=== PATIENT | female | born 1985 | race African-American/Black ===

== ENCOUNTER 2019-03-10 18:58 | Emergency (ER) | payer OTHER, SELFPAY ==
[2019-03-10 19:18] VITALS: BP 142/90; PULSE 76; RESP 18; TEMP 37.3; O2SAT 100
[2019-03-10 19:42] LABS: Add Manual Diff / Slide Review NO; Basophils Absolute Auto 100 /uL (0-100); Eosinophils Absolute Auto 600 /uL (0-450); Eosinophils Percent Auto 7.4 % (2-4); Hematocrit 35.7 % (36-46); Hemoglobin 11.9 g/dL (12.0-16.0); Lymphocytes Absolute Auto 1900 /uL (1100-4500); Lymphocytes Percent Auto 22.6 % (25-40); Mean Corpuscular HGB Conc 33.4 % (30-36); Mean Corpuscular Hemoglobin 29.9 PG (26-34); Mean Corpuscular Volume 89.7 fL (80-100); Monocytes Absolute Auto 600 /uL (0-900); Monocytes Percent Auto 6.8 % (3-14); Neutrophils Absolute Auto 5300 /uL (1500-7000); Neutrophils Percent Auto 62.2 % (50-75); Platelet Count 249 X10^3/uL (150-400); Red Blood Cell Count 3.99 X10^6/uL (4.0-5.2); Red Cell Distribution Width 14.9 % (11.6-14.8); White Blood Cell Count 8.6 X10^3/uL (4.5-11.0)
[2019-03-10 19:46] LABS: Prothrombin Time 11.7 SECONDS (10.1-12.7)
[2019-03-10 19:49] LABS: PTT Partial Thromboplastin Tim 31 SECONDS (26.4-36.2)
[2019-03-10 19:51] LABS: Alanine Aminotransferase 8 IU/L (9-52); Albumin 4.3 g/dL (3.5-5.0); Albumin Globulin Ratio 1.3 (1.0-2.8); Alkaline Phosphatase 54 U/L (38-126); Aspartate Aminotransferase 20 IU/L (14-36); BUN Creatinine Ratio 13.8 (6-22); Bilirubin Total 0.5 mg/dL (0.2-1.3); Blood Urea Nitrogen 11 mg/dL (7-17); Calcium 9.6 mg/dL (8.4-10.2); Carbon Dioxide 28 mmol/L (22-32); Chloride 103 mmol/L (98-107); Estimated Glomerular Filt Rate > 60.0 mL/min (>60); Globulin 3.2 g/dL (1.7-4.1); Glucose 100 mg/dL (70-100); HEMOLYSIS < 15 (0-50); Lipase 39 U/L (23-300); Potassium 4.1 mmol/L (3.4-5.1); Sodium 137 mmol/L (137-145); Total Protein 7.5 g/dL (6.3-8.2)
--- NOTE | 2019-03-10 20:12 | ED.ABDPAIN ---
HPI - Abdominal Pain General Chief Complaint: Abdominal Pain Stated Complaint: right side abdominal pain since yesterday Time Seen by Provider: 03/10/19 20:10 Source: patient Mode of arrival: Ambulatory Limitations: no limitations History of Present Illness HPI narrative: Patient is a 33-year-old female who presents with lower abdominal pain ongoing for the last 2 days. She says it hurts both left and right area it sometimes is radiating up her abdomen as well. No nausea or vomiting. She has been taking Tylenol without any relief. She does have a history of ovarian cyst, she had 1 laparoscopically removed. She has been taking Tylenol without any relief. No fevers. No painful or frequent urination. MD complaint: abdominal pain Onset (ago): day(s) (2) Pain Consistency: constant Severity: moderate Quality: cramping Radiation: suprapubic Migration to: no migration Relieving factors: nothing Exacerbating factors: nothing Related Data Allergies Allergy/AdvReac Type Severity Reaction Status Date / Time No Known Drug Allergies Allergy Verified 03/10/19 19:18 Review of Systems Review of Systems Narrative: GENERAL: Denies chills, fatigue, malaise, fever, sweats, travel HEENT: Denies sinus pain, ear pain, sore throat, difficulty swallowing, neck pain RESPIRATORY: Denies dyspnea, cough, wheezing, hemoptysis, sputum. CARDIOVASCULAR: Denies chest pain, palpitations, orthopnea, edema GASTROINTESTINAL: See HPI : Denies dysuria, frequency, incontinence, hematuria, urinary retention, flank pain. MUSCULOSKELETAL: Denies weakness, joint pain, or bony pain SKIN: No rash, no erythema, no pruritus NEUROLOGIC: Denies weakness, dizziness, headache, numbness, change in speech, confusion PSYCHIATRIC: No concerning psychosocial issues. 12 point review of systems is negative except for those stated above and HPI Patient History Social History Smoking Status: Never smoker alcohol intake frequency: a few times a month Substance Use Type: does not use Exam Initial Vital Signs Initial Vital Signs: Vital Signs Temperature 99.1 F 03/10/19 19:18 Pulse Rate 76 03/10/19 19:18 Respiratory Rate 18 03/10/19 19:18 Blood Pressure 142/90 H 03/10/19 19:18 Pulse Oximetry 100 03/10/19 19:18 GENERAL: Well-appearing, well-nourished and in no acute distress. HEENT: Head atraumatic,EOMI, pupils reactive, face symmetric, moist mucous membranes CARDIOVASCULAR: Regular rate and rhythm without murmurs, rubs or gallops. RESPIRATORY: Breath sounds equal bilaterally, no wheezes rales or rhonchi. ABDOMEN: Soft, slightly distended tender across lower abdomen no guarding or rebound EXTREMITIES: Normal range of motion, no clubbing or edema. Neurovascularly intact NEUROLOGICAL: Alert and oriented x4.Normal gait and speech. SKIN: Warm, dry, no laceration, no petechiae, no rashes or lesions. Course Orders Ordered: ED Orders 03/10/19 19:29 Complete Blood Count AUTO DIFF Stat Comprehensive Metabolic Panel Stat Lipase Stat Partial Thromboplastin Time Stat Procalcitonin Stat Prothrombin Time INR Stat 03/10/19 20:18 CT abdomen pelvis w con Stat 03/10/19 20:23 US pelvic complete Stat 03/10/19 21:10 EKG-12 Lead Stat Discontinued Medications Ketorolac Tromethamine (Toradol) 30 mg IV NOW ONE Stop: 03/10/19 20:19 Last Admin: 03/10/19 21:16 Dose: 30 mg Documented by: CUATE Consultations Time: 23:38 Vital Signs Vital signs: Vital Signs - 8 hr 03/10/19 19:18 03/10/19 23:10 03/11/19 00:21 Temperature 99.1 F Pulse Rate 76 74 91 H Respiratory Rate 18 16 Blood Pressure 142/90 H 124/79 Blood Pressure [Left Arm] 121/60 Pulse Oximetry 100 98 MDM - Abdominal Pain Lab Data Attestation: I reviewed the patient's lab results. Result diagrams: 03/10/19 19:29 03/10/19 19:29 Labs: Lab Results 03/10/19 03/10/19 03/10/19 Range/Units 19:29 19:29 19:29 WBC 8.6 (4.5-11.0) X10^3/uL RBC 3.99 L (4.0-5.2) X10^6/uL Hgb 11.9 L (12.0-16.0) g/dL Hct 35.7 L (36-46) % MCV 89.7 (80-100) fL MCH 29.9 (26-34) PG MCHC 33.4 (30-36) % RDW 14.9 H (11.6-14.8) % Plt Count 249 (150-400) X10^3/uL Neut % (Auto) 62.2 (50-75) % Lymph % (Auto) 22.6 L (25-40) % [place] % (Auto) 6.8 (3-14) % Eos % (Auto) 7.4 H (2-4) % Baso % (Auto) 1.0 (0-2) % Neut # (Auto) 5300 (8596-2024) /uL Lymph # (Auto) 1900 (4111-5501) /uL [place] # (Auto) 600 (0-900) /uL Eos # (Auto) 600 H (0-450) /uL Baso # (Auto) 100 (0-100) /uL PT 11.7 (10.1-12.7) SECONDS INR 1.0 (0.9-1.3) APTT 31 (26.4-36.2) SECONDS Sodium 137 (137-145) mmol/L Potassium 4.1 (3.4-5.1) mmol/L Chloride 103 (98-107) mmol/L Carbon Dioxide 28 (22-32) mmol/L BUN 11 (7-17) mg/dL Creatinine 0.80 (0.52-1.04) mg/dL Estimated GFR > 60.0 (>60) mL/min BUN/Creatinine Ratio 13.8 (6-22) Glucose 100 (70-100) mg/dL Calcium 9.6 (8.4-10.2) mg/dL Total Bilirubin 0.5 (0.2-1.3) mg/dL AST 20 (14-36) IU/L ALT 8 L (9-52) IU/L Alkaline Phosphatase 54 (38-126) U/L Total Protein 7.5 (6.3-8.2) g/dL Albumin 4.3 (3.5-5.0) g/dL Globulin 3.2 (1.7-4.1) g/dL Albumin/Globulin Ratio 1.3 (1.0-2.8) Lipase 39 (23-300) U/L Procalcitonin (<0.5) ng/mL 03/10/19 Range/Units 19:29 WBC (4.5-11.0) X10^3/uL RBC (4.0-5.2) X10^6/uL Hgb (12.0-16.0) g/dL Hct (36-46) % MCV (80-100) fL MCH (26-34) PG MCHC (30-36) % RDW (11.6-14.8) % Plt Count (150-400) X10^3/uL Neut % (Auto) (50-75) % Lymph % (Auto) (25-40) % [place] % (Auto) (3-14) % Eos % (Auto) (2-4) % Baso % (Auto) (0-2) % Neut # (Auto) (0901-5688) /uL Lymph # (Auto) (1395-2823) /uL [place] # (Auto) (0-900) /uL Eos # (Auto) (0-450) /uL Baso # (Auto) (0-100) /uL PT (10.1-12.7) SECONDS INR (0.9-1.3) APTT (26.4-36.2) SECONDS Sodium (137-145) mmol/L Potassium (3.4-5.1) mmol/L Chloride (98-107) mmol/L Carbon Dioxide (22-32) mmol/L BUN (7-17) mg/dL Creatinine (0.52-1.04) mg/dL Estimated GFR (>60) mL/min BUN/Creatinine Ratio (6-22) Glucose (70-100) mg/dL Calcium (8.4-10.2) mg/dL Total Bilirubin (0.2-1.3) mg/dL AST (14-36) IU/L ALT (9-52) IU/L Alkaline Phosphatase (38-126) U/L Total Protein (6.3-8.2) g/dL Albumin (3.5-5.0) g/dL Globulin (1.7-4.1) g/dL Albumin/Globulin Ratio (1.0-2.8) Lipase (23-300) U/L Procalcitonin < 0.05 (<0.5) ng/mL Point of care testing: Point of Care Testing Test Results Negative Urine Dip Bedside Urine Glucose Negative Bedside Urine Bilirubin - Negative Bedside Urine Ketone - Negative Urine Specific [place] 1.015 Bedside Urine Occult Blood ++ Bedside Urine pH 6.0 Bedside Urine Protein +/- 15 Bedside Urine Urobilinogen +/- 1mg Bedside Urine Nitrite - Negative Bedside Urine Leukocytes - Negative Esterase Imaging Data CT scan - abdomen: Radiologist's impression: PROCEDURE: CT ABDOMEN PELVIS W CON INDICATIONS: lower ab pain TECHNIQUE: After the administration of intravenous contrast, 5 mm thick sections acquired from the diaphragm to the symphysis. 5 mm coronal and sagittal reformats were acquired. For radiation dose reduction, the following was used: automated exposure control, adjustment of mA and/or kV according to patient size. COMPARISON: None. FINDINGS: Image quality: Excellent. ABDOMEN: Lung bases: Lung bases are clear. Heart size is normal. Very small hiatal hernia. Solid organs: Liver is normal in size and enhancement. Gallbladder is decompressed. Biliary system is non dilated. Pancreas enhances normally. Spleen is normal in size and enhancement. No adrenal nodules. Kidneys demonstrate normal size and enhancement, without hydronephrosis. Peritoneum and bowel: The appendix is not visible. In the right lower quadrant, there is an ill-defined area of heterogeneous tissue and just above the uterus and small amount of fluid in the right adnexa. Trace thickening of base of cecum is suspicious. Adjacent small bowel loops are mildly prominent and fluid-filled suggesting localized ileus. Upper small bowel loops appear normal. Colon is unremarkable. Nodes and vessels: No retroperitoneal or mesenteric adenopathy by size criteria. Aorta and inferior vena cava are normal in size. Miscellaneous: No ventral hernias. PELVIS: Genitourinary: Bladder wall thickness is normal. The uterus contains a posterior fundal fibroid and demonstrates a sub-septate morphology. There is a left adnexal cyst measuring 4.2 cm, previously characterized to be a probable hemorrhagic cyst. Miscellaneous: No inguinal hernias or adenopathy. Bones: No suspicious bony lesions. No vertebral body compression fractures. IMPRESSION: 1. Findings suspicious for acute appendicitis, particularly given the nonvisualization of the appendix, thickening of the base of the cecum, inflammatory changes in the pelvis and localized ileus. Alternatively, a pelvic endometriosis may cause this appearance. Clinical correlation is recommended. 2. Left ovarian probable hemorrhagic cyst. Dictated by: Shaunna Acosta M.D. on 03/10/2019 at 22:33 pelvic us: Radiologist's impression: PROCEDURE: US PELVIC COMPLETE INDICATIONS: PAIN; HISTORY OVARIAN CYSTS TECHNIQUE: Real-time scanning was performed of the pelvic organs, with image documentation. Additional endovaginal scanning was necessary due to incomplete visualization of the adnexal and endometrial structures by transabdominal scanning. COMPARISON: None. FINDINGS: Transabdominal scanning: Limited scanning through the kidneys shows no hydronephrosis. No pathologic free abdominal or pelvic fluid. Endovaginal scanning: Uterus: Uterus is normal in size at 8.2 x 5.5 x 6.1 cm. The endometrium measures 10.3 mm in combined thickness. There is a rounded hypoechoic myometrial mass in the right posterior fundus measuring 2.4 x 3.2 x 2.8 cm. Ovaries: The left ovary measures 4.7 x 4.7 x 4.4 cm. It contains a cystic structure with an irregular avascular adherent mural mass. The cyst measures 4.6 x 3.7 x 3.8 cm. Peripheral ovarian tissue demonstrates normal vascular flow. The right ovary measures 3.0 x 2.1 x 3.0 cm and has normal follicular echotexture. There is a trace amount of cul-de-sac fluid present. IMPRESSION: 1. 3.2 cm posterior myometrial fibroid. 2. 4.6 cm probable hemorrhagic left ovarian cyst with retracting internal clot. Ultrasound in 2-3 months to ensure resolution is recommended. Dictated by: Shaunna Acosta M.D. on 03/10/2019 at 21:52 Approved by: Shaunna Acosta M.D. on 03/10/2019 at 21:55 [facility] Narrative Medical decision making narrative: Surgery at bedside to evaluate patient. Patient does not have history consistent with appendicitis. She does have a history of endometriosis and is currently on her menstrual cycle now. Surgeries exam is not consistent with appendicitis. It was apparently discussed with for observation versus discharge home. At this time patient continues to elects going home and returning to the ED if she have any new or worsening pain. Appendix was not visualized on the CT. She has no leukocytosis or fever. Pain is now more on the left than the right. Which is where her ovarian cysts is. I discussed all findings with the patient and spouse, Education has been performed regarding treatment plan, diagnosis, warning signs and symptoms and all concerns have been addressed. Verbally agree with and understood all of the above. Discharge Plan Departure Patient Disposition: Home Clinical Impression: Endometriosis Ovarian cyst Qualifiers: Laterality: left Qualified Code(s): N83.202 - Unspecified ovarian cyst, left side Discharge Date/Time: 03/11/19 00:23 Instructions: DI for Appendicitis -- Adult, DI for Endometriosis Activity Restrictions/Additional Instructions: *You have been diagnosed with left ovarian cyst, endometriosis *What to do: It is possible that you have appendicitis. Her appendix was not visualized on the CT scan. At this time of both surgery and myself think this is more related to endometriosis and ovarian cyst. However it is imperative that she you monitor your pain. If pain is getting worst specifically more on the right side you need to return to ED immediately for re-evaluation. *Continue to take medications as directed Ibuprofen 800 mg every 8 hours if needed for pain *Follow up with your primary care provider in 2-3 days *Return to ER if you should have increasing pain more on right than left, nausea, vomiting, inability tolerate food or fluids or any new, worsening or concerning symptoms Referrals: [facility] [Provider Group] Calvin Perry MD [Physician] -
--- NOTE | 2019-03-10 20:18 | DI.CT.S_ITS ---
PROCEDURE: CT ABDOMEN PELVIS W CON INDICATIONS: lower ab pain TECHNIQUE: After the administration of intravenous contrast, 5 mm thick sections acquired from the diaphragm to the symphysis. 5 mm coronal and sagittal reformats were acquired. For radiation dose reduction, the following was used: automated exposure control, adjustment of mA and/or kV according to patient size. COMPARISON: None. FINDINGS: Image quality: Excellent. ABDOMEN: Lung bases: Lung bases are clear. Heart size is normal. Very small hiatal hernia. Solid organs: Liver is normal in size and enhancement. Gallbladder is decompressed. Biliary system is non dilated. Pancreas enhances normally. Spleen is normal in size and enhancement. No adrenal nodules. Kidneys demonstrate normal size and enhancement, without hydronephrosis. Peritoneum and bowel: The appendix is not visible. In the right lower quadrant, there is an ill-defined area of heterogeneous tissue and just above the uterus and small amount of fluid in the right adnexa. Trace thickening of base of cecum is suspicious. Adjacent small bowel loops are mildly prominent and fluid-filled suggesting localized ileus. Upper small bowel loops appear normal. Colon is unremarkable. Nodes and vessels: No retroperitoneal or mesenteric adenopathy by size criteria. Aorta and inferior vena cava are normal in size. Miscellaneous: No ventral hernias. PELVIS: Genitourinary: Bladder wall thickness is normal. The uterus contains a posterior fundal fibroid and demonstrates a sub-septate morphology. There is a left adnexal cyst measuring 4.2 cm, previously characterized to be a probable hemorrhagic cyst. Miscellaneous: No inguinal hernias or adenopathy. Bones: No suspicious bony lesions. No vertebral body compression fractures. IMPRESSION: 1. Findings suspicious for acute appendicitis, particularly given the nonvisualization of the appendix, thickening of the base of the cecum, inflammatory changes in the pelvis and localized ileus. Alternatively, a pelvic endometriosis may cause this appearance. Clinical correlation is recommended. 2. Left ovarian probable hemorrhagic cyst. Dictated by: Shaunna Acosta M.D. on 03/10/2019 at 22:33 Approved by: Shaunna Acosta M.D. on 03/10/2019 at 22:42
--- NOTE | 2019-03-10 20:23 | DI.US.S_ITS ---
PROCEDURE: US PELVIC COMPLETE INDICATIONS: PAIN; HISTORY OVARIAN CYSTS TECHNIQUE: Real-time scanning was performed of the pelvic organs, with image documentation. Additional endovaginal scanning was necessary due to incomplete visualization of the adnexal and endometrial structures by transabdominal scanning. COMPARISON: None. FINDINGS: Transabdominal scanning: Limited scanning through the kidneys shows no hydronephrosis. No pathologic free abdominal or pelvic fluid. Endovaginal scanning: Uterus: Uterus is normal in size at 8.2 x 5.5 x 6.1 cm. The endometrium measures 10.3 mm in combined thickness. There is a rounded hypoechoic myometrial mass in the right posterior fundus measuring 2.4 x 3.2 x 2.8 cm. Ovaries: The left ovary measures 4.7 x 4.7 x 4.4 cm. It contains a cystic structure with an irregular avascular adherent mural mass. The cyst measures 4.6 x 3.7 x 3.8 cm. Peripheral ovarian tissue demonstrates normal vascular flow. The right ovary measures 3.0 x 2.1 x 3.0 cm and has normal follicular echotexture. There is a trace amount of cul-de-sac fluid present. IMPRESSION: 1. 3.2 cm posterior myometrial fibroid. 2. 4.6 cm probable hemorrhagic left ovarian cyst with retracting internal clot. Ultrasound in 2-3 months to ensure resolution is recommended. Dictated by: Shaunna Acosta M.D. on 03/10/2019 at 21:52 Approved by: Shaunna Acosta M.D. on 03/10/2019 at 21:55
[2019-03-10] MEDS: KETOROLAC 60 MG/2 ML VIAL 30 MG IV (21:16)
[2019-03-10 23:10] VITALS: BP 121/60; PULSE 74; RESP 16; O2SAT 98
[2019-03-11 00:16] LABS: Procalcitonin < 0.05 ng/mL (<0.5)
[2019-03-11 00:21] VITALS: BP 124/79; PULSE 91
== END 2019-03-11 00:23 | disposition home or self-care (01) ==
PROVIDERS: Surgery; Emergency Provider Emergency Medicine
DX: N80.9 Endometriosis, unspecified (principal); N83.202 Unspecified ovarian cyst, left side
CPT/HCPCS: 36415; 74177; 76830; 76856; 80053; 81003; 81025; 83690; 84145; 85025; 85610; 85730; 93005; 96374; 99282; 99285; J1885; Q9967